=== PATIENT | male | born 1960 | race Caucasian/White ===

== ENCOUNTER 2018-06-30 11:01 | Day surgery (SDC) | payer BC ==
[~2018-06-30] VITALS: Ht 175.3 cm; Wt 89.5 kg
[2018-06-30] MEDS ORDERED: blood pressure med (12:20)
[2018-06-30] MEDS ORDERED: metformin (12:20)
[2018-06-30 12:22] VITALS: Ht 175.3 cm; Wt 89.5 kg
[2018-06-30 13:15] VITALS: BP 133/78; PULSE 69; RESP 22
--- NOTE | 2018-06-30 14:03 | PREAC ---
Date/Time of Note Date/Time of Note DATE: 06/30/18 TIME: 14:01 Anesthesia Eval and Record Evaluation Time Pre-Procedure Interview DATE: 06/30/18 TIME: 14:01 Age 58 Sex male NPO: 8 hrs Preoperative diagnosis Screening Planned procedure Colonoscopy Past Medical History Past Medical History: Includes Cardio: HTN, Dyslipidemia Endo: Diabetes Pulm: Smoking Hx (1/2 PPD ) GI: Obesity Surgery & Anesthesia Issues No known issue Meds Anticoagulation: No Beta Terrie within 24 hr: No Reason Beta Terrie not given: Pt. not on B-Terrie Reported Medications [metformin] No Conflict Check 06/30/18 [blood pressure med] No Conflict Check 06/30/18 Meds reviewed: Yes Allergies Coded Allergies: No Known Allergy (Unverified , 06/30/18) Allergies Reviewed: Yes Labs/Studies Labs Reviewed: Reviewed by anesthesiologist test: N/A Studies: ECG (n/a), CXR (n/a) Pre-procedure Exam Last vitals Vital Signs Date Temp Pulse Resp B/P (MAP) Pulse Ox O2 O2 Flow FiO2 Time Delivery Rate 06/30/18 97.9 69 22 133/78 98 Room Air 13:15 (96) Airway: Adequate mouth opening, Adequate thyromental dist Mallampati: Mallampati II Teeth: Normal Lung: Normal Heart: Normal ASA Physical Status ASA physical status: 3 Emergency: None Planned Anesthetic General/MAC: MAC Planned Pain Management Parenteral pain med Pre-operative Attestations Prior to commencing anesthesia and surgery, the patient was re-evaluated, there was verification of: *The patient's identity *The results of appropriate recent lab work and preoperative vital signs *The above evaluation not changing prior to induction *Anesthetic plan, risk benefits, alternative and complications discussed with patient/family; questions answered; patient/family understands, accepts and wishes to proceed. GURPREET JUDGE MD Jun 30, 2018 14:03
--- NOTE | 2018-06-30 14:40 | PAC ---
Date/Time of Note Date/Time of Note DATE: 06/30/18 TIME: 14:40 Post-Anesthesia Notes Post-Anesthesia Note Last documented vital signs Vital Signs Date Temp Pulse Resp B/P (MAP) Pulse Ox O2 O2 Flow FiO2 Time Delivery Rate 06/30/18 97.9 69 22 133/78 98 Room Air 14:46 (96) Activity: WNL Respiratory function: WNL Cardiovascular function: WNL Mental status: Baseline Pain reasonably controlled: Yes Hydration appropriate: Yes Nausea/Vomiting absent: Yes GURPREET JUDGE MD Jun 30, 2018 14:40
[2018-06-30] MEDS ORDERED: PROPOFOL 20 ML ONE (14:41)
--- NOTE | 2018-06-30 14:42 | HPN ---
Date/Time of Note Date/Time of Note DATE: 06/30/18 TIME: 14:42 Interval H&P Admission Note Pt. seen H&P reviewed: No system changes YOHANA BRAGG Jun 30, 2018 14:42
[2018-06-30 15:10] VITALS: BP 116/70; RESP 15
== END 2018-06-30 16:11 | disposition home or self-care (01) ==
LOC: GIL 11:01
PROVIDERS: ATTEND Internal Medicine Gastroenterology
DX: Z12.11 Encounter for screening for malignant neoplasm of colon (principal); K64.9 Unspecified hemorrhoids; E11.9 Type 2 diabetes mellitus without complications; E78.5 Hyperlipidemia, unspecified; I10 Essential (primary) hypertension
CPT/HCPCS: 45378; 82962; Z7610